=== PATIENT | male | born 1970 | race Caucasian/White ===

== ENCOUNTER 2019-10-18 12:23 | Emergency (ER) | payer OTHER, SELFPAY ==
--- NOTE | ~2019-10-18 | XR_ITS ---
XR forearm LT 2V DATE: 10/18/2019 13:15 INDICATION: Tree fell on arm TECHNIQUE: AP and lateral views COMPARISON: None FINDINGS: There is a soft tissue laceration of the proximal anterolateral left forearm. There are surgical clips along the proximal aspect of the forearm. No radiopaque foreign body is note d otherwise. No fracture or dislocation, periosteal reaction or bone destruction is detected. IMPRESSION: Proximal anterolateral large soft tissue laceration; no radiopaque foreign body Surgical clips of proximal forearm No fracture or dislocation of the left forearm Reviewed, dictated and finalized at location A.
[2019-10-18 12:24] VITALS: BP 145/111; PULSE 78; RESP 18; TEMP 36.8; O2SAT 96
[2019-10-18 12:33] VITALS: BP 136/90; PULSE 70; RESP 16
[2019-10-18] MEDS: ceFAZolin 2 GM/D5W 50 ML 2 GM/50 ML BAG IVPB (13:14)
[2019-10-18] MEDS: MORPHINE SULFATE 2 MG/ML INJ IV PUSH ×2 (13:14→14:15)
--- NOTE | 2019-10-18 13:50 | ED.WOUNDLAC ---
HPI - Wound/Laceration General Chief Complaint: Wound/Laceration Stated Complaint: Laceration forearm Time Seen by Provider: 10/18/19 12:25 Source: patient Mode of arrival: EMS Limitations: no limitations History of Present Illness HPI narrative: Patient presents with chief complaint of laceration to the volar aspect of his left wrist that he sustained while his entire left lower extremity is in a tree cutting a lamp. The lamp came down and lacerated his left forearm. The patient was locked to the tree so he did not fall from the tree after being struck. Patient has an approximately 2.5 inch x 1 inch gaping laceration to the area. Muscle is seen. Patient reports pain to the area but denies any loss of range of motion. Bleeding was easily stopped. Patient denies any other areas of impact or injury. He denies chest pain shortness of breath, nausea, vomiting, headache, vomiting, diarrhea, chest or abdominal pain or impact. patient denies any medical history or daily medications. Patient reports occasional marijuana usage. Related Data Allergies Allergy/AdvReac Type Severity Reaction Status Date / Time No Known Allergies Allergy Verified 10/18/19 12:32 Review of Systems Review of Systems: Narrative: CONSTITUTIONAL: Denies fever, chills, or sweats. EYES: Denies visual changes, redness, or discharge. ENT: Denies rhinorrhea, congestion, sore throat, or otalgia. CARDIOVASCULAR: Denies chest pain, palpitations, or edema. RESPIRATORY: Denies cough or dyspnea. GASTROINTESTINAL: Denies abdominal pain, nausea, vomiting, or diarrhea. GENITOURINARY: Denies dysuria or hematuria. SKIN: Left forearm laceration denies rash or itching. MUSCULOSKELETAL: Denies back pain, joint pain, or myalgia. NEUROLOGIC: Denies headache, numbness, dizziness, or weakness. PSYCHIATRIC: Denies anxiety or depression. Exam Narrative: Exam Narrative: GENERAL: Well-appearing, well-nourished, and in no acute distress. Blood and tree debris noted to patient. HEAD: Normocephalic, atraumatic. EYES: PERRLA and EOMI. ENT: Nares clear, no rhinorrhea or epistaxis. Mucous membranes moist. Oropharynx without tonsillar hypertrophy exudate or other lesions. Bilateral TMs pearly owens nonbulging. No hemotympanum NECK: Supple. No adenopathy or masses. No carotid bruits or JVD. No pain or loss of range of motion CHEST: Clear to auscultation. No respiratory distress. No wheezes rales or rhonchi. Not tender to palpation. HEART: Regular rate and rhythm. No murmur heard. Normal peripheral pulses. ABDOMEN: Soft, nontender, nondistended. EXTREMITIES: Approx 2.5 x 1 inch laceration to volar aspect of left forearm. deep and gaping. There appears to be completely lacerated muscle belly to proximal aspect of wound suspicious of bracial radialis injury. Patient flexion and extension at elbow intact as well as pronation and supination and ROM to fingers. Pulses intact. SKIN: Warm, dry, no rash. NEURO: No focal deficits. Alert and oriented x3. PSYCH: Normal mood and affect. Course Vital Signs Vital signs: Vital Signs Temperature 98.2 F 10/18/19 12:24 Pulse Rate 78 10/18/19 12:24 Respiratory Rate 18 10/18/19 12:24 Blood Pressure 145/111 H 10/18/19 12:24 Pulse Oximetry 96 10/18/19 12:24 Temperature 98.2 F 10/18/19 12:24 Pulse Rate 62 10/18/19 16:27 Respiratory Rate 18 10/18/19 16:27 Blood Pressure 142/93 H 10/18/19 16:27 Pulse Oximetry 100 10/18/19 16:27 Procedures Laceration Laceration 1: Site: upper extremity (left forearm) Side (If applicable): left Size (cm): 9 Depth: involves muscle layer Local Anesthetic: lidocaine 1% Amount of anesthesia used (mL): 9 Pre-repair: wound explored and irrigated extensively ====== Skin Level ====== Skin layer closed with: prolene Size (cm): 3-0 Number of sutures: 9 Technique: simple, interrupted (loose) ====== Subcutaneous Layer =
[2019-10-18 15:33] VITALS: BP 141/92; PULSE 58; RESP 18; O2SAT 100
[2019-10-18 16:27] VITALS: BP 142/93; PULSE 62; RESP 18; O2SAT 100
== END 2019-10-18 16:29 | disposition home or self-care (01) ==
PROVIDERS: Emergency Provider Emergency Medicine
DX: S61.512A Laceration without foreign body of left wrist, initial encounter (principal); W22.8XXA Striking against or struck by other objects, initial encounter; Y93.H2 Activity, gardening and landscaping
CPT/HCPCS: 12032; 12044; 73090; 96365; 96366; 96375; 96376; 99284; J0690; J0696; J2270